=== PATIENT | male | born 1960 | race Caucasian/White ===

== ENCOUNTER 2018-04-08 11:38 | Day surgery (SDC) | payer OTHER ==
--- NOTE | 2018-04-06 13:36 | EKG ---
Test Date: 2018-04-06 Test Time: 10:17:02 Anesthesia Associate: CRISTINA MEASUREMENT RESULTS: Intervals: Rate: 60 RI: 176 QRSD: 90 QT: 406 QTc: 406 [place]: P: 13 RI: 176 QRS: -2 T: 8 INTERPRETIVE STATEMENTS: Normal sinus rhythm Normal ECG Compared to ECG 11/03/2016 12:53:47 No significant changes Electronically Signed On 04-06-18 13:36:07 CDT by Elian Herrmann
[2018-04-08] MEDS ORDERED: Ringers Lactate 1,000 ML IV ONE (12:46)
[2018-04-08] MEDS ORDERED: PROPOFOL 200 MG/20 ML VIAL IV ONE ×2 (13:26→15:38)
[2018-04-08] MEDS ORDERED: MIDAZOLAM HCL 2 MG/2 ML INJ ONE (13:26)
[2018-04-08] MEDS ORDERED: ROCURONIUM 50 MG/5 ML VIAL IV ONE (13:29)
[2018-04-08] MEDS ORDERED: GLYCOPYRROLATE 0.2 MG/ML SYR ONE (13:29)
[2018-04-08] MEDS ORDERED: NEOSTIGMINE 1 MG/ML -5 ML SYRINGE ONE (13:30)
[2018-04-08] MEDS ORDERED: LIDOCAINE 2% MPF 5 ML VIAL ONE (13:44)
[2018-04-08] MEDS ORDERED: FENTANYL CITR 100 MCG/2 ML ONE (13:44)
[2018-04-08] MEDS ORDERED: OXYMETAZOLINE HCL 0.05% 30ML NAS ONE (14:50)
[2018-04-08] MEDS ORDERED: EPINEPHRINE/PF 1 MG/ML AMP ONE (14:50)
[2018-04-08] MEDS ORDERED: LABETALOL 20 MG/4ML SYRINGE IV ONE ×2 (15:16→16:00)
[2018-04-08] MEDS ORDERED: SUCCINYLCHOLINE 20 MG/ML (10 ML) IV ONE (15:42)
--- NOTE | 2018-04-08 15:49 | P.BOP ---
Preoperative diagnosis: laryngeal lesion Postoperative diagnosis: same Primary procedure: DL with biopsy Surgical Attendant: NONE,NONE Estimated blood loss: <5ml Specimen: R TVF polyp Anesthesia: General Fluids & blood products: crystalloid 500ml Transferred to: Recovery Room Condition: Good
[2018-04-08 17:07] VITALS: BP 143/75; TEMP 97.7; O2SAT 93
--- NOTE | 2018-04-09 13:42 | OP ---
Date of Procedure: 04/08/2018 Surgeon: Domi Elizalde MD Preoperative Diagnoses: Right vocal cord lesion, left vocal cord leukoplakia, tobacco use. Postoperative Diagnoses: Right vocal cord lesion, left vocal cord leukoplakia, tobacco use. Procedure: Direct laryngoscopy with biopsy. Indication For Procedure: Mr. De La Garza presented with persistent hoarseness and notable laryngoscopy f indings on flexible exam in the office. The risks, benefits, and alternatives of the procedure were discussed with the patient, who agreed to proceed. Description Of Procedure: The patient was brought to the operating room. He was placed under genera l anesthesia via oral endotracheal tube. A shoulder roll was placed and the neck was extended. A [employer]Berc[employer] laryngoscope fitted with appropriate telescope was used to perform a direct laryngoscopy. The vocal cords were difficult to visualize due to the presence of the 7.5 endotracheal tube. The l aryngoscope was withdrawn and the endotracheal tube was exchanged over a bougie with a 7.0 endotrache al tube. An anterior commissure scope was used to perform a laryngoscopy. The anterior scope was no t specifically longer or better angled than the Francisco-Berci scope and the telescope was difficult to use with the anterior commissure scope. Therefore, the scope was removed and a Francisco-Berci again w as used to perform a direct laryngoscopy. The patient was placed in suspension. The airway was cont rolled, but again evaluation of the vocal cords was difficult due to the presence of the endotracheal tube. After conferring with Anesthesia, anesthetic gases were held, and the endotracheal tube was r emoved. The anterior aspect of the vocal cord was still difficult to visualize. Pressure was placed on the cricoid to aid in visualization. A polypoid appearing lesion on the anterior right cord was grasped with up-biting cup forceps. The specimen was sent to Pathology as a permanent section. The 7-0 endotracheal tube was passed through the Francisco-Berci scope and visualized passing through the gl ottis. The cuff was inflated and the patient was ventilated for several minutes. An Afrin-soaked pl edget was placed above the endotracheal tube at the biopsy site and left in place for several minutes . During this time, the laryngoscope was relaxed from suspension to allow some circulation to the to ngue. The device was then replaced in suspension and a grasper was used to remove the pledget. The pledget was noted to fragment and only a small portion was removed. Three additional attempts with f urther fragmentation of the pledget were noted. Finally the bulk of the pledget was removed. The ar ea was carefully inspected and suctioned. There was no evidence of residual pledget within the laryn geal introitus. The laryngoscope was then released from suspension and carefully removed in a push-p ull technique to leave the endotracheal tube in place. The patient was then returned to care of [facility] for awakening and extubation in the operating room, which proceeded without difficulty. Complications: None. Surgical Findings: Difficult intubation and difficult airway exposure due to patient's habitus. Disposition: The patient will be discharged home later today with strict voice rest for 3 days and w ill follow up with Dr. Elizalde in 10 days for discussion of pathology results. ROSE MARIE/ALMAS Voice ID: [id number] Report ID: [id number]
== END 2018-04-08 17:00 | disposition home or self-care (01) ==
LOC: OR 11:38
PROVIDERS: ATTEND Otolaryngology
PROC: 0CBT8ZX Excision of Right Vocal Cord, Via Natural or Artificial Opening Endoscopic, Diagnostic (ICD-10-PCS; principal; 2018-04-08 14:30)
DX: D02.0 Carcinoma in situ of larynx (principal); R49.0 Dysphonia; Z72.0 Tobacco use; G47.33 Obstructive sleep apnea (adult) (pediatric); I10 Essential (primary) hypertension; K21.9 Gastro-esophageal reflux disease without esophagitis; Z88.0 Allergy status to penicillin; Z82.49 Family history of ischemic heart disease and other diseases of the circulatory system; Z83.2 Family history of diseases of the blood and blood-forming organs and certain disorders involving the immune mechanism; Z83.79 Family history of other diseases of the digestive system
CPT/HCPCS: 88305; 93005; J0171; J0330; J2250; J2710; J3010

== ENCOUNTER 2019-03-14 06:25 | Day surgery (SDC) | payer OTHER ==
--- OUTSIDE RECORDS SUMMARY | 2019-03-14 06:29 | XMS REPORT ---
:1960 Author [facility] Address [address] [place] [address] Dr. Morales [address] [place] [id number] Care Team Providers Name Role Phone FATUMA PAULINO Unavailable Unavailable Problems This patient has no known problems. Allergies, Adverse Reactions, Alerts This patient has no known allergies or adverse reactions. Medications This patient has no known medications. Results Test Description Test Time Test Comments Text Results Atomic Results Result Comments TISSUE EXAM 2018-06-01 17:21:00 Surgical Pathology Report Case: [id number] Authorizing Provider: Fatuma Paulino MD Collected: 05/30/2018 0916 Ordering Location: [facility] Received: 05/30/2018 1207 SERVICES Pathologist: Marcus Calhoun MD Specimens: A) - Vocal Cord, RIGHT FALSE CORD B) - Vocal Cord, RIGHT TRUE VOCAL CORD EXCISIONAL BIOPSY C) - Vocal Cord, LEFT TRUE VOCAL CORD LEUKOPLAKIA A. VOCAL CORD, RIGHT FALSE, BIOPSY: - MILD SQUAMOUS DYSPLASIAB. VOCAL CORD, RIGHT TRUE, EXCISIONAL BIOPSY: - INVASIVE MODERATELY DIFFERENTIATED SQUAMOUS CELL CARCINOMAC. VOCAL CORD, LEFT TRUE, LEUKOPLAKIA, BIOPSY: - MICROINVASIVE SQUAMOUS CELL CARCINOMA Signing Pathologist Direct Phone Line: [phone] signed by Marcus Calhoun MD on 06/01/2018 at 5:21 PMC. Immunostain for D2-40 is negative, supporting no evidence of lymphovascular invasion.[id number] cell carcinoma of vocal cord A. Right false vocal cord. B. Right true vocal cord excisional biopsy. C. Left true vocal cord leukoplakiaSpecimen A: Received in formalin labeled "vocal cord", description "right false cord" is a single fragment measuring 0.5 cm in greatest dimension. The specimen is entirely submitted in A1.Specimen B: Received in formalin labeled "vocal cord", description "right true vocal cord excisional biopsy" are multiple fragments measuring 1.6 x 1.5 x 0.2 cm in aggregate. The specimen is entirely submitted in B1.Specimen C: Received in formalin labeled "vocal cord", description "left true vocal cord leukoplakia" are two fragments measuring 0.5 and 0.8 cm in greatest dimension. The specimen is entirely submitted in C1. DB/ewPerformed.The following special studies were performed on this case and the interpretation is incorporated in the diagnostic report above:The immunohistochemistry test was developed and its performance characteristics determined by [facility], Pathology Laboratory. It has not been cleared or approved by the U.S. Food and Drug Administration. The FDA has determined that such clearance or approval is not necessary. The test is used for clinical purposes. It should not be regarded as investigational or for research. This laboratory is certified under the Clinical Laboratory Improvement Amendments of 1988 (CLIA-88) as qualified to perform high complexity clinical laboratory testing.
--- OUTSIDE RECORDS SUMMARY | 2019-03-14 06:29 | XMS REPORT | Clinical Summary ---
:1960 Author Organization [facility] Address [address] [place] [address] Care Team Providers Name Role Phone Jermaine Huerta MD Primary Care Provider Allergies Active Allergy Reactions Severity Noted Date Comments Amoxicillin-Pot Rash, Other (See Low 05/26/2018 Facial numbness Clavulanate Comments) Medications Medication Sig Dispensed Refills Start Date End Date Status gabapentin (NEURONTIN) Take 600 mg by 0 Active 600 MG tablet mouth nightly. irbesartan-hydrochlorot Take 1 tablet 0 Active hiazide (AVALIDE) by mouth 300-12.5 mg per tablet daily. omeprazole (PRILOSEC) Take 20 mg by 0 Active 20 MG capsule mouth 2 (two) times daily. diphenhydrAMINE Take 25 mg by 0 Active (BENADRYL) 25 mg mouth every capsule night as needed. aspirin 81 MG EC tablet Take 81 mg by 0 Active mouth daily. cholecalciferol, Take by mouth. 0 Active vitamin D3, 2,000 unit Cap FLAXSEED ORAL Take by mouth. 0 Active magnesium 250 mg Tab Take by mouth. [address] 1 patch 0 Active (CATAPRES-TTS) 0.1 onto the skin mg/24 hr patch once a week. codeine-guaifenesin Take 5 mLs by 120 mL 0 05/31/2018 06/10/2018 (GUAIFENESIN AC) 10-100 mouth every 6 mg/5 mL liquid (six) hours as needed for Cough for up to 10 days. Max Daily Amount: 20 mLs Active Problems Problem Noted Date Vocal cord cancer 05/30/2018 Encounters Date Type Specialty Care Team Description 05/30/2018 Anesthesia Event Nuno Kaminski III, MD 05/30/2018 Surgery Gildardo Paulino LARYNGOSCOPYJACKIE MD USPBETSY 05/30/2018 - Hospital Encounter General Internal Gildardo Paulino 05/31/2018 Yuliana Olivares MD 05/26/2018 Hospital Encounter Pre-Admission Resource, Oqmt Testing Preadmit Phone after 03/13/2018 Social History Tobacco Use Types Packs/Day Years Used Date Current Every Day Smoker 0.5 20 Smokeless Tobacco: Never Used Tobacco Cessation: Ready to Quit: Yes Alcohol Use Drinks/Week oz/Week Comments Yes occasionally Sex Assigned at Date Recorded Not on file Job Start Date Occupation Industry Not on file Not on file Not on file Travel History Travel Start Travel End No recent travel history available. Last Filed Vital Signs Vital Sign Reading Time Taken Blood Pressure 161/78 05/31/2018 8:04 AM CDT Pulse 52 05/31/2018 8:04 AM CDT Temperature 35.6 C (96 F) 05/31/2018 8:04 AM CDT Respiratory Rate 18 05/31/2018 8:04 AM CDT Oxygen Saturation 96% 05/31/2018 8:04 AM CDT Inhaled Oxygen Concentration - - Weight 98.7 kg (217 lb 11.2 oz) 05/30/2018 6:13 AM CDT Height 172.7 cm (5' 8") 05/30/2018 6:13 AM CDT Body Mass Index 33.1 05/30/2018 6:13 AM CDT Plan of Treatment Not on file Procedures Procedure Name Priority Date/Time Associated Comments Diagnosis TISSUE EXAM AP Routine 05/30/2018 9:16 Results for this AM CDT procedure are in the results section. 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) Case Notes 1.5 HOURS Special Needs (LARYNGOSCOPE, FLEXIBLE FIBER CO2 LASER)([employer] to provide laser AMAYA) Confirmed after 03/13/2018 Results Tissue Exam (05/30/2018 9:16 AM CDT) Case Report Surgical Pathology Report Case: [id number] [facility] Authorizing Provider:Gildardo Paulino MD Collected: 05/30/2018 0916 [facility] Ordering Location: [facility] Received: 05/30/2018 1207 SERVICES Pathologist: Marcus Calhoun MD Specimens: A) - Vocal Cord, RIGHT FALSE CORD B) - Vocal Cord, RIGHT TRUE VOCAL CORD EXCISIONAL BIOPSY C) - Vocal Cord, LEFT TRUE VOCAL CORD LEUKOPLAKIA DIAGNOSIS A. VOCAL CORD, RIGHT FALSE, BIOPSY: [facility] - MILD SQUAMOUS DYSPLASIA [facility] B. VOCAL CORD, RIGHT TRUE, EXCISIONAL BIOPSY: - INVASIVE MODERATELY DIFFERENTIATED SQUAMOUS CELL CARCINOMA C. VOCAL CORD, LEFT TRUE, LEUKOPLAKIA, BIOPSY: - MICROINVASIVE SQUAMOUS CELL CARCINOMA Signing Pathologist Direct Phone Line: [phone] COMMENT C. Immunostain for D2-40 is [facility] negative, supporting no evidence [facility] of lymphovascular invasion. CPT Code(s) 33662v3 [facility] [id number] [facility] CLINICAL HISTORY Squamous cell carcinoma of vocal [facility] cord [facility] SPECIMEN SOURCE A. Right false vocal cord. B. [facility] Right true vocal cord excisional [facility] biopsy. C. Left true vocal cord leukoplakia GROSS DESCRIPTION Specimen A: Received in formalin labeled "vocal cord", description "right false cord" is a single fragment measuring 0.5 cm in greatest dimension. The specimen is entirely submitted in A1. [facility] Specimen B: Received in formalin labeled "vocal cord", description "right true vocal cord excisional biopsy" are multiple fragments measuring 1.6 x 1.5 x 0.2 cm in aggregate. The specimen is entirely submitted in B1. Specimen C: Received in formalin labeled "vocal cord", description "left true vocal cord leukoplakia" are two fragments measuring 0.5 and 0.8 cm in greatest dimension. The specimen is entirely submitted in C1. DB/ew MICROSCOPIC DESCRIPTION Performed. [facility] SPECIAL STUDIES The following special studies were performed on this case and the interpretation is incorporated in the diagnostic report above: [facility] The immunohistochemistry test was developed and its performance characteristics determined by [facility], Pathology Laboratory. It has not been cleared or approved by the U.S. Food and [facility] Drug Administration. The FDA has determined that such clearance or approval is not necessary. The test is used for clinical purposes. It should not be regarded as investigational or for research. This laboratory is certified under the Clinical Laboratory Improvement Amendments of 1988 (CLIA-88) as qualified to perform high complexity clinical laboratory testing. Specimen Tissue Tissue - Vocal cord structure (body structure) Tissue - Vocal cord structure (body structure) Performing Organization Address City/State/Zipcode Phone Number [address] [address] [phone] CENTER after 03/13/2018 Insurance Payer Benefit Plan / Group Subscriber ID Type Phone Address [facility] PPO/POS xxxxxxxxxxx PPO SYSTEM Advance Directives For more information, please contact:[address] [phone] Code Status Date Activated Date Inactivated Comments Full Code 05/30/2018 12:47 PM 05/31/2018 12:45 PM This code status was determined by: Patient
[2019-03-14] MEDS ORDERED: Ringers Lactate 1,000 ML IV ONE (06:54)
[2019-03-14] MEDS ORDERED: PROPOFOL 200 MG/20 ML VIAL IV ONE (07:20)
[2019-03-14] MEDS ORDERED: LIDOCAINE 1% MPF 5 ML VIAL ONE (07:21)
--- NOTE | 2019-03-14 08:00 | ENDO RPT ---
[address], [address] EGD PROCEDURE REPORT EXAM DATE: 03/14/2019 PATIENT NAME: Bruno De La Garza MR#: [id number] BIRTHDATE: 1960 ATTENDING: Jovi Vasquez Dr STATUS: outpatient POWDER NIPPER: Brianne Blackwell, Nita Ricci RN, and Kirit Wilder RN INDICATIONS: The patient is a 59 yr old Male here for an EGD due to dyspepsia and bloating PROCEDURE PERFORMED: EGD with biopsy MEDICATIONS: Per Anesthesia. TOPICAL ANESTHETIC: none CONSENT: The patient understands the risks and benefits of the procedure and understands that these risks include, but are not limited to: sedation, allergic reaction, infection, perforation and/or bleeding. Alternative means of evaluation and treatment include, among others: physical exam, x-rays, and/or surgical intervention. The patient elects to proceed with this endoscopic procedure. DESCRIPTION OF PROCEDURE: During intra-op preparation period all mechanical medical equipment was checked for proper function. Hand hygiene and appropriate measures for infection prevention was taken. Procedure, possible complications, and alternatives including but not limited to the possibility of bleeding, perforation, tear, infection, sepsis, need for surgery, need for blood transfusion, and anesthesia related complications were explained to the patient. After the risks, benefits and alternatives of the procedure were thoroughly explained, Informed consent was verified, confirmed and timeout was successfully executed by the treatment team. The patient was placed in the left lateral position. The patient was anesthetized with topical anesthesia. Through the anesthetized oropharyngeal area, the scope was passed without any difficulty. The Pentax EG-[id number] ([id number]) endoscope was introduced through the mouth and advanced to the third portion of the duodenum. Retroflexed views revealed no abnormalities. The gastroscope was then slowly withdrawn and removed. Nodular mucosa was found in the body of the stomach. Multiple biopsies were obtained and sent to pathology. Mild gastritis was found in the antrum. Multiple biopsies were obtained and sent to pathology. A 7 mm submucosal nodule was found in the antrum. Mild duodenitis was found in the bulb and descending duodenum. ADVERSE EVENTS: There were no complications. IMPRESSIONS: 1. Nodular mucosa in the body of the stomach, s/p biopsies 2. Mild gastritis in the antrum, s/p biopsies 3. 7 mm submucosal nodule in the antrum 4. Mild duodenitis in the bulb and descending duodenum RECOMMENDATIONS: 1. await biopsy results 2. acid suppression therapy 3. CT abdomen 4. EUS - endoscopic ultrasound for 7 mm submucosal nodule in antrum REPEAT EXAM: Jovi Vasquez Dr eSigned: Jovi Vasquez Dr 03/14/2019 7:59 AM cc: Jermaine Huerta CPT CODES: ICD9 CODES: PATIENT NAME: Bruno De La Garza MR#: [id number]
--- NOTE | 2019-03-14 08:19 | ENDO RPT ---
[address], [address] COLONOSCOPY PROCEDURE REPORT EXAM DATE: 03/14/2019 PATIENT NAME: Bruno De La Garza MR #: [id number] BIRTHDATE: 1960 ATTENDING: Jovi Vasquez Dr STATUS: outpatient MANAGER RENTAL: Brianne Blackwell, Kirit Wilder RN, and Nita Ricci RN INDICATIONS: The patient is a 59 yr old Male here for a colonoscopy due to personal history of colon polyps PROCEDURE PERFORMED: Colonoscopy MEDICATIONS: Per Anesthesia. ESTIMATED BLOOD LOSS: None CONSENT: The patient understands the risks and benefits of the procedure and understands that these risks include, but are not limited to: sedation, allergic reaction, infection, perforation and/or bleeding. Alternative means of evaluation and treatment include, among others: physical exam, x-rays, and/or surgical intervention. The patient elects to proceed with this endoscopic procedure. DESCRIPTION OF PROCEDURE: During intra-op preparation period all mechanical medical equipment was checked for proper function. Hand hygiene and appropriate measures for infection prevention was taken. Procedure, possible complications, alternatives including, but not limited to possibility of bleeding, perforation, tear, infection, sepsis, need for surgery, need for blood transfusion, were explained to the patient. After the risks, benefits and alternatives of the procedure were thoroughly explained, Informed consent was verified, confirmed and timeout was successfully executed by the treatment team. The patient was placed in the left lateral position. A digital rectal exam was performed and revealed no abnormalities of the rectum. After appropriate level of anesthesia, the scope was passed. The EG-[id number] ([id number]) and EC-[id number] ([id number]) endoscope was introduced through the anus and advanced to the terminal ileum which was intubated for a short distance. The quality of the prep was good. The instrument was then slowly withdrawn as the colon was fully examined. Scope withdrawal time was 8 minutes. COLON FINDINGS: Mild diverticulosis was noted in the sigmoid colon. No bleeding was noted from the diverticulosis. Small internal hemorrhoids were found. Retroflexed views revealed small hemorrhoids. The scope was then completely withdrawn from the patient and the procedure terminated. ADVERSE EVENTS: There were no complications. IMPRESSIONS: 1. Mild diverticulosis in the sigmoid colon 2. Small internal hemorrhoids 3. Intubation to terminal ileum 4. Personal history of colon polyps RECOMMENDATIONS: fiber rich diet RECALL: Return in 3 year(s) for Colonoscopy. Jovi Vasquez Dr eSigned: Jovi Vasquez Dr 03/14/2019 8:19 AM cc: Jermaine Huerta CPT CODES: ICD9 CODES: PATIENT NAME: Bruno De La GarzaDasia MR#: [id number]
[2019-03-14 10:23] VITALS: BP 116/68; TEMP 97.6; O2SAT 95
== END 2019-03-14 08:56 | disposition home or self-care (01) ==
LOC: OR 06:25
PROVIDERS: ATTEND Internal Medicine Gastroenterology
PROC: 0DB78ZX Excision of Stomach, Pylorus, Via Natural or Artificial Opening Endoscopic, Diagnostic (ICD-10-PCS; 2019-03-14)
PROC: 0DJD8ZZ Inspection of Lower Intestinal Tract, Via Natural or Artificial Opening Endoscopic (ICD-10-PCS; principal; 2019-03-14 07:30)
PROC: 0DB68ZX Excision of Stomach, Via Natural or Artificial Opening Endoscopic, Diagnostic (ICD-10-PCS; 2019-03-14 07:30)
DX: Z12.11 Encounter for screening for malignant neoplasm of colon (principal); K57.30 Diverticulosis of large intestine without perforation or abscess without bleeding; K64.8 Other hemorrhoids; Z86.010 Personal history of colon polyps; K29.50 Unspecified chronic gastritis without bleeding; K29.80 Duodenitis without bleeding; K31.89 Other diseases of stomach and duodenum; M19.90 Unspecified osteoarthritis, unspecified site; K21.9 Gastro-esophageal reflux disease without esophagitis; Z79.899 Other long term (current) drug therapy; Z87.891 Personal history of nicotine dependence
CPT/HCPCS: 88305; 88312; J2704

== ENCOUNTER 2019-09-11 05:09 | Emergency (ER) | payer OTHER ==
[2019-09-11 05:56] LABS: Absolute Lymphocytes (CBC) 2.1 K/uL (0.7-4.9); Hematocrit 44.5 % (39.6-49.0); Lymphocytes % 26.6 % (15.3-44.8); MPV 8.7 fL (7.6-11.3); RBC Red Blood Cell Count 5.02 M/uL (4.33-5.43)
[2019-09-11 06:03] LABS: Urine Blood NEGATIVE (NEG); Urine Glucose NEGATIVE (NEG); Urine Protein NEGATIVE (NEG); Urine pH 5.5 (5.0-7.0)
[2019-09-11] MEDS ORDERED: MORPHINE 4 MG/ML SYR ONE (06:10)
[2019-09-11] MEDS ORDERED: ONDANSETRON 4 MG/2 ML VIAL ONE (06:11)
[2019-09-11 06:13] LABS: Albumin 3.8 g/dL (3.4-5.0); Bilirubin Direct 0.1 mg/dL (0-0.2); Bilirubin Total 0.3 mg/dL (0.2-1.0); Potassium 3.9 mmol/L (3.5-5.1); Protein, Total 7.3 g/dL (6.4-8.2)
--- NOTE | 2019-09-11 06:18 | EDPHYS ---
Physician Documentation [facility] Name: Bruno De La Garza Age: 59 yrs Sex: Male : 1960 Arrival Date: 09/11/2019 Time: 05:11 Bed 20 Private MD: ED Physician Elliot Jane HPI: 09/11 06:14 This 59 yrs old Male presents to ER via Ambulatory with complaints of Back kb Pain. 06:14 The patient presents with pain that is chronic, with no known mechanism of injury. The kb symptoms are located in the low back. Onset: The symptoms/episode began/occurred 2 week(s) ago. The pain radiates to the right leg. Associated signs and symptoms: The patient has no apparent associated signs or symptoms. The problem was sustained known disc problem. Modifying factors: The patient symptoms are alleviated by nothing, the patient symptoms are aggravated by any movement. Severity of symptoms: At their worst the symptoms were moderate, in the emergency department the symptoms are unchanged. The patient has experienced similar episodes in the past. The patient has not recently seen a physician. Pt reports chronic back pain due to a disc problem. States the pain normally comes and goes, but this time has lasted 2 weeks. States pain is to right lower back/buttock area and radiates down right leg. Reports muscle spasms and tingling/numbness at times. . Historical: - Allergies: 05:32 amoxicillin trihydrate; wh 05:32 Augmentin; wh - Home Meds: 05:32 aspirin 81 mg Oral chew once daily [Active]; gabapentin 500 mg Oral tab 1 cap 3 times wh per day [Active]; irbesartan-hydrochlorothiazide 300-12.5 mg Oral tab 1 tab once daily [Active]; omeprazole 40 mg oral cpDR 1 cap once daily [Active]; magnesium oxide 400 mg oral tab [Active]; ezetimibe oral 10 mg oral 1 tab once daily [Active]; - PMHx: 05:32 Hypertension; GERD; Bladder Ca; Vocal Cord Ca; wh - PSHx: 05:32 Hernia repair; wh - Immunization history:: Adult Immunizations not up to date. - Social history:: Smoking status: Patient/guardian denies using tobacco. - Ebola Screening: : Patient negative for fever greater than or equal to 101.5 degrees Fahrenheit, and additional compatible Ebola Virus Disease symptoms Patient denies exposure to infectious person. ROS: 06:05 Constitutional: Negative for fever, chills, and weight loss, Cardiovascular: Negative kb for chest pain, palpitations, and edema, Respiratory: Negative for shortness of breath, cough, wheezing, and pleuritic chest pain, Abdomen/GI: Negative for abdominal pain, nausea, vomiting, diarrhea, and constipation, : Negative for injury, bleeding, discharge, and swelling, MS/Extremity: Negative for injury and deformity, Skin: Negative for injury, rash, and discoloration, Neuro: Negative for headache, weakness, numbness, tingling, and seizure. 06:05 Back: Positive for pain at rest, pain with movement, radiated pain, of the right low back. Exam: 06:05 Constitutional: This is a well developed, well nourished patient who is awake, alert, kb and in no acute distress. Head/Face: Normocephalic, atraumatic. Neck: Trachea midline, no thyromegaly or masses palpated, and no cervical lymphadenopathy. Supple, full range of motion without nuchal rigidity, or vertebral point tenderness. No Meningismus. Chest/axilla: Normal chest wall appearance and motion. Nontender with no deformity. No lesions are appreciated. Cardiovascular: Regular rate and rhythm with a normal S1 and S2. No gallops, murmurs, or rubs. Normal PMI, no JVD. No pulse deficits. Respiratory: Lungs have equal breath sounds bilaterally, clear to auscultation and percussion. No rales, rhonchi or wheezes noted. No increased work of breathing, no retractions or nasal flaring. Abdomen/GI: Soft, non-tender, with normal bowel sounds. No distension or tympany. No guarding or rebound. No evidence of tenderness throughout. Skin: Warm, dry with normal turgor. Normal color with no rashes, no lesions, and no evidence of cellulitis. MS/ Extremity: Pulses equal, no cyanosis. Neurovascular intact. Full, normal range of motion. Neuro: Awake and alert, GCS 15, oriented to person, place, time, and situation. Cranial nerves II-XII grossly intact. Motor strength 5/5 in all extremities. Sensory grossly intact. Cerebellar exam normal. Normal gait. 06:05 Back: pain, that is moderate, of the right low back, ROM is normal, normal spinal alignment noted. Vital Signs: 05:25 BP 155 / 98; Pulse 56; Resp 18; Temp 97.8; Pulse Ox 98% ; Weight 99.79 kg; Height 5 ft. wh 8 in. (172.72 cm); 06:02 BP 153 / 78; Pulse 57; Resp 18; Pulse Ox 97% on R/A; wh 05:25 Body Mass Index 33.45 (99.79 kg, 172.72 cm) MDM: 05:57 Patient medically screened. 06:05 Data reviewed: vital signs, nurses notes. Data interpreted: Pulse oximetry: on room air kb is 97 %. Interpretation: normal. 06:14 Counseling: I had a detailed discussion with the patient and/or guardian regarding: the kb historical points, exam findings, and any diagnostic results supporting the discharge/admit diagnosis, lab results, the need for outpatient follow up, a family practitioner, to return to the emergency department if symptoms worsen or persist or if there are any questions or concerns that arise at home. 09/11 05:25 Order name: Basic Metabolic Panel; Complete Time: 06:13 tw4 09/11 05:25 Order name: CBC with Diff; Complete Time: 06:02 tw4 09/11 05:25 Order name: Creatinine for Radiology; Complete Time: 06:11 4 09/11 05:25 Order name: Hepatic Function; Complete Time: 06:13 tw4 09/11 05:25 Order name: Lipase; Complete Time: 06:13 4 09/11 05:56 Order name: Urine Dipstick--Ancillary (enter results); Complete Time: 06:04 2 09/11 05:25 Order name: IV Saline Lock; Complete Time: 05:49 tw4 09/11 05:25 Order name: Labs collected and sent; Complete Time: 05:49 tw4 09/11 05:25 Order name: Urine Dipstick-Ancillary (obtain specimen); Complete Time: 05:49 tw4 Administered Medications: 06:12 Drug: Zofran 4 mg Route: IVP; Site: right antecubital; 06:58 Follow up: Response: No adverse reaction; Nausea is decreased 06:14 Drug: morphine 4 mg Route: IVP; Site: right antecubital; 06:57 Follow up: Response: No adverse reaction; Pain is decreased 06:58 Follow up: Response: No adverse reaction; RASS: Alert and Calm (0) 06:23 Drug: TORadol - Ketorolac 15 mg Route: IVP; Site: right antecubital; 06:59 Follow up: Response: No adverse reaction; Pain is decreased Disposition: 09/12 00:28 Co-signature as Attending Physician, Elliot Jane MD I agree with the assessment and tw4 plan of care. Disposition: 09/11/19 06:18 Discharged to Home. Impression: Sciatica, right side. - Condition is Stable. - Discharge Instructions: Sciatica, [id number]. - Prescriptions for Cyclobenzaprine 10 mg Oral Tablet - take 1 tablet by ORAL route every 8 hours As needed; 21 tablet. Diclofenac Sodium 75 mg Oral Tablet, Delayed Release (E.C.) - take 1 tablet by ORAL route 2 times per day As needed; 30 tablet. - Medication Reconciliation Form, Thank You Letter, Antibiotic Education, Prescription Opioid Use form. - Follow up: Emergency Department; When: As needed; Reason: Worsening of condition. Follow up: Private Physician; When: 2 - 3 days; Reason: Recheck today's complaints, Continuance of care, Re-evaluation by your physician. Signatures: Dispatcher [employer] Stefania Garcia, PILAR GARDNER-Precious Stevenson Elliot Jane MD MD tw4 Corrections: (The following items were deleted from the chart) 09/11 07:00 06:18 09/11/2019 06:18 Discharged to Home. Impression: Sciatica, right side. Condition is Stable. Forms are Medication Reconciliation Form, Thank You Letter, Antibiotic Education, Prescription Opioid Use. Follow up: Emergency Department; When: As needed; Reason: Worsening of condition. Follow up: Private Physician; When: 2 - 3 days; Reason: Recheck today's complaints, Continuance of care, Re-evaluation by your physician. kb
--- NOTE | 2019-09-11 06:18 | ER ---
Nurse's Notes [facility] Name: Bruno De La Garza Age: 59 yrs Sex: Male : 1960 Arrival Date: 09/11/2019 Time: 05:11 Bed 20 Private MD: Diagnosis: Sciatica, right side Presentation: 09/11 05:23 Presenting complaint: Patient states: C/O lower back pain that radiates to lower legs wh progressively getting worse since 2 weeks ago. Now C/O cramping pain in back and legs 10/10 in pain scale. Transition of care: patient was not received from another setting of care. Onset of symptoms was September 11, 2019. Risk Assessment: Do you want to hurt yourself or someone else? Patient reports no desire to harm self or others. Initial Sepsis Screen: Does the patient meet any 2 criteria? No. Patient's initial sepsis screen is negative. Does the patient have a suspected source of infection? No. Patient's initial sepsis screen is negative. Care prior to arrival: None. 05:23 Method Of Arrival: Ambulatory 05:23 Acuity: BHANU 4 Historical: - Allergies: 05:32 amoxicillin trihydrate; 05:32 Augmentin; - Home Meds: 05:32 aspirin 81 mg Oral chew once daily [Active]; gabapentin 500 mg Oral tab 1 cap 3 times wh per day [Active]; irbesartan-hydrochlorothiazide 300-12.5 mg Oral tab 1 tab once daily [Active]; omeprazole 40 mg oral cpDR 1 cap once daily [Active]; magnesium oxide 400 mg oral tab [Active]; ezetimibe oral 10 mg oral 1 tab once daily [Active]; - PMHx: 05:32 Hypertension; GERD; Bladder Ca; Vocal Cord Ca; - PSHx: 05:32 Hernia repair; - Immunization history:: Adult Immunizations not up to date. - Social history:: Smoking status: Patient/guardian denies using tobacco. - Ebola Screening: : Patient negative for fever greater than or equal to 101.5 degrees Fahrenheit, and additional compatible Ebola Virus Disease symptoms Patient denies exposure to infectious person. Screenin:26 Abuse screen: Denies threats or abuse. Denies injuries from another. Nutritional screening: No deficits noted. Tuberculosis screening: No symptoms or risk factors identified. Fall Risk None identified. Assessment: 05:49 General: Appears in no apparent distress. uncomfortable, Behavior is calm, cooperative, wh appropriate for age. Pain: Complains of pain in lumbar area, left low back and right low back Pain radiates to right leg Pain currently is 10 out of 10 on a pain scale. Quality of pain is described as crampy, Pain began 2 weeks ago. Neuro: Level of Consciousness is awake, alert, obeys commands, Oriented to person, place, time, situation, Appropriate for age Linter Tender are equal bilaterally Gait is steady. Cardiovascular: Heart tones S1 S2. Respiratory: Airway is patent Respiratory effort is even, unlabored, Respiratory pattern is regular, symmetrical, Breath sounds are clear bilaterally. GI: Abdomen is flat, non-distended, Abd is soft and non tender X 4 quads. : No signs and/or symptoms were reported regarding the genitourinary system. EENT: No signs and/or symptoms were reported regarding the EENT system. Derm: Skin is intact, is healthy with good turgor, Skin is pink, warm \T\ dry. normal. Musculoskeletal: Circulation, motion, and sensation intact. 06:02 Reassessment: Patient appears in no apparent distress at this time. No changes from previously documented assessment. Patient and/or family updated on plan of care and expected duration. Pain level reassessed. Patient is alert, oriented x 3, equal unlabored respirations, skin warm/dry/pink. Vital Signs: 05:25 BP 155 / 98; Pulse 56; Resp 18; Temp 97.8; Pulse Ox 98% ; Weight 99.79 kg; Height 5 ft. 8 in. (172.72 cm); 06:02 BP 153 / 78; Pulse 57; Resp 18; Pulse Ox 97% on R/A; 05:25 Body Mass Index 33.45 (99.79 kg, 172.72 cm) ED Course: 05:11 Patient arrived in ED. ag3 05:23 Precious Escobedo is Primary Nurse. 05:25 Triage completed. 05:26 Patient has correct armband on for positive identification. Bed in low position. Call light in reach. Side rails up X 1. Pulse ox on. NIBP on. 05:51 Arm band placed on right wrist. 05:51 Inserted saline lock: 20 gauge in right antecubital area, using aseptic technique. Blood collected. 05:56 Stefania Faulkner FNP-C is [facility]. 05:56 Elliot Jane MD is Attending Physician. kb 06:55 No provider procedures requiring assistance completed. IV discontinued, intact, bleeding controlled, No redness/swelling at site. Administered Medications: 06:12 Drug: Zofran 4 mg Route: IVP; Site: right antecubital; 06:58 Follow up: Response: No adverse reaction; Nausea is decreased 06:14 Drug: morphine 4 mg Route: IVP; Site: right antecubital; 06:57 Follow up: Response: No adverse reaction; Pain is decreased 06:58 Follow up: Response: No adverse reaction; RASS: Alert and Calm (0) 06:23 Drug: TORadol - Ketorolac 15 mg Route: IVP; Site: right antecubital; 06:59 Follow up: Response: No adverse reaction; Pain is decreased Outcome: 06:18 Discharge ordered by . kb 06:56 Discharged to home ambulatory, with family. 06:56 Condition: stable 06:56 Discharge instructions given to patient, family, Instructed on follow up and referral plans. no driving heavy equipment, medication usage, POC Sciatica Demonstrated understanding of instructions, follow-up care, medications, POC 07:00 Patient left the ED. Signatures: Stefania Faulkner FNP-C FNP-Precious Stevenson Adele Morin ag3
[2019-09-11] MEDS ORDERED: KETOROLAC 30 MG/ML INJ ONE (06:19)
[2019-09-11 07:25] VITALS: TEMP 97.8
[2019-09-11 07:26] VITALS: BP 153/78; O2SAT 97
--- OUTSIDE RECORDS SUMMARY | 2019-09-11 07:26 | XMS REPORT ---
:1960 [facility] Address [address] [place] [address] Dr. Morales [address] [place] [id number] Care Team Providers Name Role Phone FATUMA PAULINO Unavailable Unavailable Problems This patient has no known problems. Allergies, Adverse Reactions, Alerts This patient has no known allergies or adverse reactions. Medications This patient has no known medications. Results Test Description Test Time Test Comments Text Results Atomic Results Result Comments TISSUE EXAM 2018-06-01 17:21:00 Surgical Pathology Report Case: [id number] Authorizing Provider: Fatuma Paulino MD Collected: 05/30/2018 0916 Ordering Location: [facility] PERI[facility] Received: 05/30/2018 1207 SERVICES Pathologist: Marcus [...] CELL CARCINOMA Signing Pathologist Direct Phone Line: [phone] signed by Marcus Calhoun MD on 06/01/2018 at 5:21 PMC. 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 It has not been cleared [...]
== END 2019-09-11 07:00 | disposition home or self-care (01) ==
LOC: ER 05:09
DX: M54.31 Sciatica, right side (principal); K21.9 Gastro-esophageal reflux disease without esophagitis; Z88.1 Allergy status to other antibiotic agents
CPT/HCPCS: 85025; 80048; 36415; 80076; 81003; 83690; 96375; 96374; 99284; J2405

== ENCOUNTER 2022-03-12 07:17 | Day surgery (SDC) | payer BC ==
[2022-03-12] MEDS ORDERED: Ringers Lactate 1,000 ML IV ONE (07:53)
[2022-03-12] MEDS ORDERED: propofoL 200 MG/20 ML VIAL IV ONE (08:41)
[2022-03-12] MEDS ORDERED: LIDOCAINE 1% MPF 5 ML VIAL ONE (08:41)
[2022-03-12 09:38] VITALS: O2SAT 100
[2022-03-12 09:39] VITALS: BP 125/72; TEMP 97
--- NOTE | 2022-03-12 21:45 | OP ---
Surgeon: Sudarshan Lopez MD Procedure To Be Performed: Esophagogastroduodenoscopy. Indications For Procedure: History of gastric mass. Plan For Anesthesia: Monitored anesthesia care. Complexity: Average. Technique: After obtaining informed consent from the patient, explaining risks and complications whi ch include, but are not limited to, bleeding, infection, perforation, and anesthesia complication, th e patient was placed in the left lateral position and sedation was given. From then on, the scope wa s advanced into the mouth and carefully guided up to the second portion of the duodenum. After the c ompletion of examination, scope and equipment withdraw, and procedure terminated in a safe manner. Findings: Esophagus: No gross lesion seen in the upper and mid esophagus. In the distal esophagus, the Z-line appeared to be regular. Multiple biopsies taken to rule out Daley's in this region. T he GE junction was around 40 cm from the incisors. Stomach: Mild patchy erythema seen in the body and antrum. Well-striped erythema primarily in the a ntrum, biopsies taken. In the antrum region, also gastric mass was seen. This appeared to be benign . Submucosal tunnel biopsies done, which revealed actually it was lipoma. The mass was around 1 cm in size. Duodenum: The bulb revealed mild duodenitis. The second portion of the duodenum was normal. Complications: None. Tolerance To Anesthesia: Excellent. Estimated Blood Loss: Minimal. Postoperative Diagnoses: Gastric mass, likely lipoma. Gastritis. Irregular Z-line. Plan: 1.Await pathology results. 2.Continue PPI. Given the nature of the mass and the little lack of change, no need for any further intervention. He may benefit from repeating endoscopy again in 3 to 4 years for followup. US/MODL Voice ID: [id number] Report ID: [id number]
== END 2022-03-12 09:39 | disposition home or self-care (01) ==
LOC: OR 07:17
PROVIDERS: ATTEND Internal Medicine Gastroenterology
PROC: 0DB78ZX Excision of Stomach, Pylorus, Via Natural or Artificial Opening Endoscopic, Diagnostic (ICD-10-PCS; 2022-03-12)
PROC: 0DB68ZX Excision of Stomach, Via Natural or Artificial Opening Endoscopic, Diagnostic (ICD-10-PCS; 2022-03-12)
PROC: 0DB58ZX Excision of Esophagus, Via Natural or Artificial Opening Endoscopic, Diagnostic (ICD-10-PCS; principal; 2022-03-12 08:30)
DX: K29.50 Unspecified chronic gastritis without bleeding (principal); R14.0 Abdominal distension (gaseous); R14.3 Flatulence; Z87.19 Personal history of other diseases of the digestive system; Z20.822 Contact with and (suspected) exposure to COVID-19
CPT/HCPCS: 88312; 88305; 43239; U0002; J2704; J7120

== ENCOUNTER 2023-10-05 06:54 | Day surgery (SDC) | payer BC ==
--- NOTE | 2023-09-20 13:16 | RAD REPORT ---
EXAM DESCRIPTION: RAD - Chest Pa And Lat (2 Views) - 09/20/2023 1:08 pm CLINICAL HISTORY: Pre op pending urolift Chest pain. COMPARISON: Chest Pa And Lat (2 Views) dated 10/02/2019; Chest Pa And Lat (2 Views) dated 09/21/2016; CHEST PA AND LAT 2 VIEW dated 05/29/2008; CHEST PA AND LAT 2 VIEW dated 04/21/2002 TECHNIQUE: PA and lateral views of the chest were obtained. FINDINGS: The lungs are hyperexpanded compatible with COPD. The heart is upper limit of normal in si ze. No fracture or aggressive bony process. IMPRESSION: COPD without acute process identified. The USPSTF recommends annual screening for lung cancer with low-dose CT (LDCT) in adults aged 50 to 80 years who have a 20 pack-year smoking history and currently smoke or have quit within the past 15 years.
[2023-09-20 13:33] LABS: Absolute Lymphocytes (CBC) 1.8 K/uL (0.7-4.9); Lymphocytes % 22.2 % (15.3-44.8); MCV 88.7 fL (80-100); MPV 8.3 fL (7.6-11.3); Platelets 233 thou/uL (152-406); RBC Red Blood Cell Count 4.85 M/uL (4.33-5.43)
--- NOTE | 2023-09-22 16:55 | EKG ---
Test Date: 2023-09-20 Test Time: 13:49:01 Lobby Porter: NICKO MEASUREMENT RESULTS: Intervals: Rate: 63 ID: [id number] QRSD: 88 QT: 406 QTc: 415 [place]: P: 50 ID: [id number] QRS: 23 T: 51 INTERPRETIVE STATEMENTS: Normal sinus rhythm Normal ECG Compared to ECG 04/06/2018 10:17:02 No significant changes Electronically Signed On 09-22-23 16:51:53 OIL INSPECTOR by Morro Nicholson
[2023-10-05] MEDS ORDERED: Ringers Lactate 1,000 ML IV ONE (07:11)
[2023-10-05] MEDS ORDERED: CLINDAMYCIN 600MG/D5W 50 ML IV ONE (08:00)
[2023-10-05] MEDS ORDERED: Gentamicin Inj 240 MG in NA CHLORIDE 0.9% 100 ML IVPB ONE (08:00)
[2023-10-05] MEDS ORDERED: ONDANSETRON 4 MG/2 ML VIAL ONE (08:05)
[2023-10-05] MEDS ORDERED: propofoL 200 MG/20 ML VIAL IV ONE (08:05)
[2023-10-05] MEDS ORDERED: FENTANYL CITR 100 MCG/2 ML ONE (08:05)
[2023-10-05] MEDS ORDERED: LIDOCAINE 1% MPF 5 ML VIAL ONE (08:05)
[2023-10-05] MEDS ORDERED: MIDAZOLAM HCL 2 MG/2 ML INJ ONE (08:05)
[2023-10-05] MEDS: CLINDAMYCIN 600MG/D5W 50 ML IV ONE ×2 (08:54→08:55)
[2023-10-05] MEDS ORDERED: GLYCOPYRROLATE 0.2 MG/ML SYR ONE ×2 (08:59→09:01)
[2023-10-05 10:09] VITALS: TEMP 97
[2023-10-05] MEDS ORDERED: PHENAZOPYRIDINE 100MG TAB PO ONE (10:19)
[2023-10-05] MEDS ORDERED: CODEINE 30MG/APAP 300MG TAB PO PRN (10:19)
[2023-10-05 11:20] VITALS: BP 113/64; O2SAT 97
[2023-10-05] MEDS ORDERED: CODEINE 30MG/APAP 300MG TAB ONE (11:21)
--- NOTE | 2023-10-05 12:23 | OP ---
Surgeon: HAYLEY TAVARES Preoperative Diagnoses: Benign prostatic hypertrophy with lower urinary tract obstruction and sympto ms. Postoperative Diagnoses: Benign prostatic hypertrophy with lower urinary tract obstruction and sympt oms. Principal Procedure: Prostatic urethral lift/UroLift with 5 implants placed. Indication For Procedure: Mr. De La Garza presented with bothersome lower urinary symptoms due to BPH, re fractory to maximum dose Flomax therapy. He was counseled on options for management of his BPH and u ltimately elected to proceed with surgical therapy. He was a candidate for the UroLift based on the evaluation. Procedure In Detail: The patient was consented in the preoperative holding area before being transfe rred to the operative suite where general anesthesia was induced. He was given clindamycin and genta micin 240 mg IV antimicrobial prophylaxis, and pneumo boots were provided for DVT prophylaxis. He wa s placed in the lithotomy position, padded and secured to the table appropriately. His genitalia wer e prepped with Hibiclens and he was draped in standard fashion. The case was begun using the 20-Fren ch UroLift sheath and a visual obturator to traverse the urethra and into the bladder with ease. The re were no obvious papillary mucosal lesions, foreign bodies, or stones. The prostatic urethra revea led the presence of a slight elevation of the median bar with some lateral lobar hypertrophy as previ ously noted. As a result, I switched the visual obturator for a UroLift delivery device and the firs t implant. I targeted this at the patient's left side about 1.5 to 2 cm distal to the bladder neck. The tissue in that location was targeted at around the 1 to 2 o'clock position and the bladder neck was elevated in that region. I angled 15 degrees to the patient's left and pulled the trigger, deliv ering the needle through the surface of the prostate to the capsule. I then angled the scope an columba tional 15 degrees in order to ensure the needle exited the capsular surface before pulling the trigge r a second time deploying the capsular tab and partially retracting the needle. A third pull of the trigger did tension the suture before I then advance the scope back toward the midline and then 2 to 3 mm toward the bladder neck until the white line of the monofilament was centered in the delivery ba y. At this point, I pulled the trigger a fourth time deploying the urethral in piece and tailoring t he suture. The implant did nicely implant and invaginate within tissue at the bladder neck with a ni ce 0.5 cm rim of tissue between it and the entry into the bladder. As a result, I advanced the scope back into his bladder and switched it for a new UroLift implant. At this point, I targeted the day ent's right side bladder neck in a similar 1.5 to 2 cm distal to the bladder neck opening position be tween the 10 to 11 o'clock position. Elevating the bladder neck similarly in that location, I went t hrough the sequence of trigger pulls as described above and deployed an implant on the patient's righ t side at the bladder neck nicely elevating the channel in that location. I then surveyed the channe l created, and there was some residual apical and mid gland tissue causing obstruction. As a result, I targeted a third implant at the patient's apical portion of the prostate but determined such that the implant would deploy just proximal to the apex where the predominance of the obstructing tissue w as present. As a result, targeting at the approximately 3 o'clock position, but angling the scope up [place] such that the needle would end up going through the tissue and exiting the capsular surface. At around the 1 o'clock position, I placed a third implant at the left apex beautifully lateralizing th e tissue in that location. I then placed a fourth implant on the patient's right side with a similar technique creating a beautiful continuous anterior channel from the verumontanum into the bladder ne ck. Because at this point, the elevation of the bladder neck did seem to potentially be causing a sl ight degree of residual obstruction, I utilized a spent implant to see if I could enter a left latera l sulcus of that elevated median bar at the bladder neck and successfully lateralize that elevated me jacinta bar more completely opening the channel. While I was able to demonstrate that as possible and t o get at least 1.5 cm away from the bladder neck entry, I then switched for a new UroLift implant, th e fifth and final, which I then successfully was able to navigate into the left lateral sulcus of the elevated median bar and lateralize that elevated median bar to the patient's right angling the scope eventually to the 9 o'clock position before pulling the trigger and successfully delivering the need le through to the capsular surface of the prostate and deploying an implant that ultimately situated with an approximately 0.25 cm rim of tissue between that and the entry into the bladder neck. As a r esult, survey of the channel created using a visual obturator revealed a beautiful continuous anterio r channel widely patent and nicely open at the bladder neck and so I left his bladder full and remove d the scope before placing a new 18-[place] coude tipped Browning catheter with ease. The urine that ascencion megd was clear to light pink, and the patient was taken out of the lithotomy position. He was then a wakened from general anesthesia before being transferred to a stretcher and then transferred to the r ecovery room in good condition. Complications: None. Discharge Disposition: Followup should be established per routine in the Urology Clinic in about a m onth following the UroLift procedure. CALISTA/ALMAS Voice ID: [id number] Report ID: [id number]
== END 2023-10-05 12:10 | disposition home or self-care (01) ==
LOC: OR 06:54
PROVIDERS: ATTEND Urology
PROC: 0T7D8DZ Dilation of Urethra with Intraluminal Device, Via Natural or Artificial Opening Endoscopic (ICD-10-PCS; principal; 2023-10-05 08:15)
DX: N40.1 Benign prostatic hyperplasia with lower urinary tract symptoms (principal); N13.8 Other obstructive and reflux uropathy; I10 Essential (primary) hypertension; J44.9 Chronic obstructive pulmonary disease, unspecified; K21.9 Gastro-esophageal reflux disease without esophagitis; G62.9 Polyneuropathy, unspecified; Z85.51 Personal history of malignant neoplasm of bladder; Z87.891 Personal history of nicotine dependence; Z88.0 Allergy status to penicillin
CPT/HCPCS: 93005; 87088; 85025; 87086; 80048; 36415; 85610; 71046; 52441; 52442 ×4; J2704; J2001; J1580; J2250; J3010; J2405; J7120

== ENCOUNTER 2024-11-28 07:21 | Day surgery (SDC) | payer BC ==
[2024-11-23 12:16] LABS: Absolute Basophils 0.1 K/uL (0-0.5); Absolute Eosinophils 0.4 K/uL (0-0.5); Absolute Lymphocytes (CBC) 1.8 K/uL (0.7-4.9); Absolute Monocytes 0.9 K/uL (0.1-1.3); Basophils % 0.6 % (0-1.3); Eosinophils % 4.4 % (0-4.4); Hematocrit 44.6 % (39.6-49.0); Hemoglobin 15.3 g/dL (13.6-17.9); Lymphocytes % 22.2 % (15.3-44.8); MCH 30.1 pg (27.0-35.0); MCHC 34.3 g/dL (32.0-36.0); MCV 87.8 fL (80-100); MPV 8.2 fL (7.6-11.3); Monocytes % 11.6 % (3.3-12.3); Neutrophils % 61.2 % (41.7-73.7); Nucleated Red Blood Cells % 0.1 % (0-0); Platelets 261 thou/uL (152-406); RBC Red Blood Cell Count 5.08 M/uL (4.33-5.43); Red Cell Distribution Width 13.8 % (12.1-15.2)
[2024-11-23 12:31] LABS: Anion Gap 5.7 mEq/L (5.0-15.0); Potassium 4.7 mEq/L (3.5-5.1)
--- NOTE | 2024-11-24 15:09 | EKG ---
Test Date: 2024-11-23 Test Time: 12:50:46 Grease Renderer: NICKO MEASUREMENT RESULTS: Intervals: Rate: 61 [place]: 182 QRSD: 84 QT: 404 QTc: 406 [place]: P: 50 [place]: 182 QRS: 7 T: 44 INTERPRETIVE STATEMENTS: Normal sinus rhythm Normal ECG Compared to ECG 09/20/2023 13:49:01 No significant changes Electronically Signed On 11-24-24 15:06:10 ABNORMAL PSYCHOLOGY TEACHER by Morro Nicholson
[2024-11-28] MEDS ORDERED: propofoL 200 MG/20 ML VIAL IV ONE (07:38)
[2024-11-28] MEDS ORDERED: LIDOCAINE 1% MPF 30 ML VIAL ONE (07:38)
[2024-11-28] MEDS ORDERED: GLYCOPYRROLATE 0.2 MG/ML SYR ONE (07:38)
[2024-11-28] MEDS: Ringers Lactate 1,000 ML IV ONE (07:50)
[2024-11-28 09:47] VITALS: O2SAT 98
[2024-11-28 09:55] VITALS: BP 120/59; TEMP 97.8
== END 2024-11-28 10:02 | disposition home or self-care (01) ==
LOC: OR 07:21
PROVIDERS: ATTEND Internal Medicine Gastroenterology
PROC: 0DBH8ZX Excision of Cecum, Via Natural or Artificial Opening Endoscopic, Diagnostic (ICD-10-PCS; principal; 2024-11-28 08:45)
DX: Z12.11 Encounter for screening for malignant neoplasm of colon (principal); K57.30 Diverticulosis of large intestine without perforation or abscess without bleeding; K64.8 Other hemorrhoids; D12.0 Benign neoplasm of cecum
CPT/HCPCS: 45385; 93005; 85025; 80048; 36415; 88305; J2704; J2003; J7120